=== PATIENT | male | born 1945 | race Caucasian/White ===

== ENCOUNTER 2019-01-30 12:05 | Emergency (ER) | payer MEDICARE, OTHER | END 2019-01-30 13:40 | disposition home or self-care (01) | LOC: ERS 12:05 | DX: I10 Essential (primary) hypertension (principal); G47.00 Insomnia, unspecified; I25.10 Atherosclerotic heart disease of native coronary artery without angina pectoris; F41.9 Anxiety disorder, unspecified; F31.9 Bipolar disorder, unspecified; Z86.73 Personal history of transient ischemic attack (TIA), and cerebral infarction without residual deficits | CPT/HCPCS: 99283 ==

== ENCOUNTER 2019-03-02 15:31 | Outpatient (CLI) | payer OTHER ==
--- NOTE | 2019-03-02 17:45 | MRI ---
MRI OF BRAIN WITH AND WITHOUT CONTRAST: 03/02/19 INDICATIONS: Ataxia. History of prostate cancer. COMPARISON: Comparison made to prior MRI from 2011 which showed right cerebral infarcts. FINDINGS: On today's exam, there is encephalomalacia involving the right frontal parietal cortex with gliosis c onsistent with old infarcts. Mild cortical volume loss. No restricted diffusion seen today. No abnorm al enhancement identified. 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 No acute process seen today. POS: PAO
== END 2019-03-02 15:32 | disposition home or self-care (01) ==
LOC: SCSMRI 15:31
PROVIDERS: ATTEND Psychiatry & Neurology Neurology
DX: R27.0 Ataxia, unspecified (principal); G93.89 Other specified disorders of brain
CPT/HCPCS: 70553; 82565